=== PATIENT | female | born 1950 | race Caucasian/White ===

== ENCOUNTER 2022-09-29 19:50 | Observation (INO) ==
[2022-09-29] MEDS ORDERED: SODIUM CHLORIDE 0.9% 1,000 ML IV STA ×2 (20:42→22:58)
[2022-09-29] MEDS ORDERED: ONDANSETRON 4 MG/2 ML VIAL IV STA (20:42)
[2022-09-29 21:13] LABS: Glucose,Urine (UA) Negative (Negative); Ketones,Urine Negative (Negative); Protein,Urine Negative (Negative); Urine Appearance Clear (Clear); Urine Color Yellow (Yellow)
[2022-09-29 21:14] LABS: Bilirubin,Urine Negative (Negative); Blood, Urine Negative (Negative); Nitrite,Urine Negative (Negative); Urine Urobilinogen 0.2 eU/dL (<2.0)
[2022-09-29 21:15] LABS: Mucus,Urine Occasional /LPF (Occasional); Squamous Epithelial Cell,Urine Occasional /HPF (0-10)
[2022-09-29 22:11] LABS: Basophils % 0.2 % (0.0-0.8); Eosinophils # 0.2 10*3/uL (0.0-0.87); Eosinophils % 1.8 % (0.00-10.9); Hematocrit 34.2 VOL% (35.7-47.0); Hemoglobin 11.2 GM/DL (12.0-16.0); Immature Granulocytes % 1.2 %; Immature Granulocytes Absolute 0.15 #; Lymphocytes # 0.7 10*3/uL (1.4-4.0); Lymphocytes % 5.3 % (21.3-54.2); Mean Corpuscular HGB Conc 32.7 GM/DL (32-36); Mean Corpuscular Volume 87.7 FL (87-102); Mean Platelet Volume 11.7 FL (9.6-12.0); Monocytes # 0.6 10*3/uL (0.11-0.8); Neutrophils % 86.5 % (38.7-73.9); Platelet Count 230 T/CUMM (130-400); Red Cell Distribution Width 13.8 % (9.3-17.3); White Blood Count 12.5 T/CUMM (4-12)
[2022-09-29 22:32] LABS: Alanine Aminotransferase 97 U/L (13-56); Albumin 2.3 G/DL (3.4-5.0); Alkaline Phosphatase 158 U/L (45-117); Aspartate Amino Transferase 140 U/L (0-37); Blood Urea Nitrogen 14 MG/DL (7-18); Calcium 8.3 MG/DL (8.5-10.1); Carbon Dioxide 29 MMOL/L (21-32); Chloride 101 MMOL/L (98-107); Glucose 222 MG/DL (74-106); Osmolality,Calculated 280.8 MOS/KG (273-304); Potassium 3.1 MMOL/L (3.5-5.1); Sodium 137 MMOL/L (136-145)
[2022-09-30] MEDS ORDERED: ALBUTEROL 2.5 MG/3 ML NEB RESP TX STA (02:14)
[2022-09-30] MEDS ORDERED: DEXAMETHASONE 4 MG/1 ML VIAL IV STA (03:54)
[2022-09-30] MEDS ORDERED: ONDANSETRON 4 MG/2 ML VIAL IV PRN (06:01)
[2022-09-30] MEDS ORDERED: GLUCAGON 1 MG VIAL IM PRN (06:01)
[2022-09-30] MEDS ORDERED: hydrALAZINE 20 MG/1 ML VIAL IV PRN (06:01)
[2022-09-30] MEDS ORDERED: ACETAMINOPHEN 325 MG TABLET PO PRN (06:01)
[2022-09-30] MEDS ORDERED: MORPHINE 2 MG/1 ML SYRINGE IV PRN (06:01)
[2022-09-30] MEDS ORDERED: POTASSIUM CHLORIDE 20 MEQ TABLET PO ONE (06:01)
[2022-09-30] MEDS ORDERED: DEXTROSE 10% 250 ML BAG IV PRN (06:16)
[2022-09-30] MEDS ORDERED: PIPERACILLIN/TAZOBACTAM 3,375 MG in SODIUM CHLORIDE 0.9% 100 ML IV ONE (06:32)
[2022-09-30] MEDS ORDERED: VANCOMYCIN INJ 1,750 MG in SODIUM CHLORIDE 0.9% 250 ML IV ONE (07:30)
[2022-09-30 07:54] LABS: Hepatitis B Surface Ag Quant < 0.10 Index; Hepatitis B Surface Ag Result Non-Reactive (NonReactive); Hepatitis C Virus Ab Quant < 0.02 Index; Hepatitis C Virus Ab Result Non-Reactive (NonReactive)
[2022-09-30] MEDS: ASPIRIN EC 81 MG TABLET PO SCH (08:46)
[2022-09-30] MEDS: LACTATED RINGERS 1,000 ML IV SCH ×2 (08:46→22:15)
[2022-09-30] MEDS: PANTOPRAZOLE 40 MG TABLET PO SCH (08:47)
[2022-09-30] MEDS: CITALOPRAM 20 MG TABLET PO SCH ×2 (09:12→11:45)
[2022-09-30] MEDS: amLODIPine 5 MG TABLET PO SCH (09:12)
[2022-09-30 10:12] LABS: Arterial Base Excess iSTAT 1 MMOL/L (-2.5-2.5); Arterial Bicarbonate iSTAT 26.2 MMOL/L (20-26); Arterial O2 Saturation iSTAT 89 % (95-100); Arterial PCO2 iSTAT 41 MM HG (35-48); Arterial PO2 iSTAT 57 MM HG (80-95); Arterial Total CO2 iSTAT 27 MMO/L (23-27); Arterial pH iSTAT 7.409 (7.35-7.45)
[2022-09-30] MEDS: INSULIN LISPRO 100 UNIT/ML SUBCUT SCH ×4 (11:02→22:15)
[2022-09-30] MEDS: ALBUTEROL/IPRATROPIUM 3 ML NEB RESP TX SCH ×3 (11:15→18:58)
[2022-09-30] MEDS: FUROSEMIDE 40 MG/4 ML VIAL IV SCH (17:49)
[2022-09-30] MEDS ORDERED: ENOXAPARIN 40 MG/0.4 ML SYRINGE SUBCUT SCH (21:00)
[2022-10-01] MEDS ORDERED: ALBUTEROL 2.5 MG/3 ML NEB RESP TX ONE ×3 (00:46→13:15)
[2022-10-01] MEDS ORDERED: IPRATROPIUM 500 MCG/2.5 ML NEB RESP TX ONE ×3 (00:46→13:16)
[2022-10-01] MEDS: ALBUTEROL/IPRATROPIUM 3 ML NEB RESP TX SCH ×2 (00:58→07:37)
[2022-10-01 04:42] LABS: Basophils % 0.2 % (0.0-0.8); Eosinophils # 0.1 10*3/uL (0.0-0.87); Eosinophils % 0.6 % (0.00-10.9); Hematocrit 31.3 VOL% (35.7-47.0); Hemoglobin 10.1 GM/DL (12.0-16.0); Immature Granulocytes % 1.1 %; Immature Granulocytes Absolute 0.14 #; Lymphocytes # 2.2 10*3/uL (1.4-4.0); Lymphocytes % 17.5 % (21.3-54.2); Mean Corpuscular HGB Conc 32.3 GM/DL (32-36); Mean Corpuscular Volume 88.2 FL (87-102); Mean Platelet Volume 11.6 FL (9.6-12.0); Monocytes # 1.3 10*3/uL (0.11-0.8); Neutrophils % 70.6 % (38.7-73.9); Platelet Count 240 T/CUMM (130-400); Red Blood Count 3.55 MC/CUMM (3.8-5.5); White Blood Count 12.5 T/CUMM (4-12)
[2022-10-01 05:05] LABS: Alanine Aminotransferase 68 U/L (13-56); Albumin 2.3 G/DL (3.4-5.0); Alkaline Phosphatase 105 U/L (45-117); Aspartate Amino Transferase 28 U/L (0-37); Bilirubin,Total < 0.39 MG/DL (0.20-1.00); Blood Urea Nitrogen 18 MG/DL (7-18); Calcium 8.2 MG/DL (8.5-10.1); Carbon Dioxide 29 MMOL/L (21-32); Chloride 103 MMOL/L (98-107); Glucose 200 MG/DL (74-106); Osmolality,Calculated 282.7 MOS/KG (273-304); Potassium 3.7 MMOL/L (3.5-5.1); Sodium 138 MMOL/L (136-145); Total Protein 5.9 G/DL (6.4-8.2)
[2022-10-01] MEDS: LACTATED RINGERS 1,000 ML IV SCH (05:13)
[2022-10-01] MEDS: INSULIN LISPRO 100 UNIT/ML SUBCUT SCH ×2 (09:33→12:55)
[2022-10-01] MEDS: CITALOPRAM 20 MG TABLET PO SCH (09:34)
[2022-10-01] MEDS: amLODIPine 5 MG TABLET PO SCH (09:34)
[2022-10-01] MEDS: PANTOPRAZOLE 40 MG TABLET PO SCH (09:34)
[2022-10-01] MEDS: ASPIRIN EC 81 MG TABLET PO SCH (09:34)
[2022-10-01] MEDS: FUROSEMIDE 40 MG/4 ML VIAL IV SCH (09:34)
[2022-10-01] MEDS ORDERED: FUROSEMIDE 40 MG/4 ML VIAL IV ONE (11:10)
[2022-10-01] MEDS ORDERED: GLUCAGON 1 MG VIAL IM PRN (11:11)
[2022-10-01] MEDS ORDERED: DEXTROSE 50% 25 GM/50 ML VIAL IV PRN (11:11)
[2022-10-01 11:27] VITALS: BP 133/63
== END 2022-10-01 13:15 | disposition home or self-care (01) ==
LOC: N.EDINP 19:50 → N.ED 19:50 → N.EDINP 09-30 11:30 → N.TELEN 09-30 11:57
PROVIDERS: ADMIT Internal Medicine; ATTEND Internal Medicine